=== PATIENT | male | born 1930 | race Two or more races ===

== ENCOUNTER 2016-07-30 21:01 | Inpatient (IN) | payer OTHER, MEDICAID ==
[~2016-07-30] VITALS: Ht 337.8 cm; Wt 65.8 kg
--- NOTE | 2016-07-30 21:01 | NUR ---
86 YO MALE BB RA FROM HOME. PT IS ALERT X 3, C/O RIGHT RIB PAIN S/P FALL. PER EMS, PT HAD A GLF AT HOME, PT STATES IT HURTS TO DEEPT BREATHI. SKN WARM AND DRY, RR EVEN AND UNLABORED. AWAITING ORDERS FROM PROVIDER
--- NOTE | 2016-07-30 21:15 | NUR ---
18G LEFT AC IV STARTED
[2016-07-30 21:35] LABS: BASOPHILS # (AUTO) 0.1 /CMM (0.0-0.2); BASOPHILS % (AUTO) 0.6 % (0.0-2.0); EOSINOPHILS # (AUTO) 0.6 /CMM (0.0-0.7); EOSINOPHILS % (AUTO) 4.3 % (0.0-6.0); HEMATOCRIT 34 % (39-51); HEMOGLOBIN 10.9 g/dL (13.5-17.5); LYMPHOCYTES # (AUTO) 1.8 /CMM (0.8-4.8); LYMPHOCYTES % (AUTO) 13.3 % (20.0-44.0); MEAN CORPUSCULAR HEMOGLOBIN 25 PG (26.0-33.0); MEAN CORPUSCULAR HGB CONC 32 g/dl (31.0-36.0); MEAN CORPUSCULAR VOLUME 78 fL (80-96); MONOCYTES # (AUTO) 0.9 /CMM (0.1-1.30); MONOCYTES % (AUTO) 6.6 % (2.0-12.0); NEUTROPHILS # (AUTO) 10.3 /CMM (1.8-8.9); NEUTROPHILS % (AUTO) 75.2 % (43.0-81.0); PLATELET COUNT (AUTO) 308 /CMM (150-450); RDW COEFFICIENT OF VARIATION 13.1 (11.5-15.0); RED BLOOD CELL COUNT(AUTO) 4.35 MIL/uL (4.5-6.0); WHITE BLOOD COUNT (AUTO) 13.7 K/uL (4.3-11.0)
[2016-07-30] MEDS ORDERED: ONDANSETRON HCL/PF 4 MG/2 ML VIAL ONE (21:43)
[2016-07-30] MEDS ORDERED: MORPHINE SULFATE INJ 2 MG/ML DISP.SYRIN ONE ×2 (21:43→23:38)
[2016-07-30 21:45] LABS: CALCIUM, SERUM 9.3 mg/dL (8.5-10.1); CREATININE 2.1 mg/dL (0.6-1.3)
[2016-07-30 21:49] LABS: PROTHROMBIN TIME 10.4 SECS (9.5-12.7)
[2016-07-30 21:50] LABS: ALBUMIN 3.1 g/dL (3.4-5.0); BILIRUBIN,DIRECT 0.1 mg/dL (0.0-0.2); BILIRUBIN,TOTAL 0.2 mg/dL (0.2-1.0); TOTAL PROTEIN, SERUM 8.4 g/dL (6.4-8.2)
--- NOTE | 2016-07-30 21:52 | NUR ---
RADIOLOGY TEAM AT BED SIDE FOR EVAL
--- NOTE | 2016-07-30 21:52 | NUR ---
MEDICATED PT ORDERED
[2016-07-30 21:53] LABS: TROPONIN I 0.02 ng/mL (0.00-0.056)
[2016-07-30] MEDS ORDERED: MORPHINE SULFATE INJ 2 MG/ML DISP.SYRIN IV ONE (22:00)
[2016-07-30] MEDS ORDERED: ONDANSETRON HCL/PF 4 MG/2 ML VIAL IV ONE (22:00)
[2016-07-30] MEDS ORDERED: PIPERACILLIN /TAZOBACTAM 3.375 G in IV D5W 50 ML IV ONE (22:00)
[2016-07-30] MEDS ORDERED: PIPERACILLIN /TAZOBACTAM 2.25 G in IV D5W 50 ML IV ONE (22:00)
[2016-07-30] MEDS ORDERED: VANCOMYCIN 1 GM in IV D5W 250 ML IV ONE (22:00)
[2016-07-30 22:10] LABS: LACTIC ACID 1.1 mmol/L (0.4-2.0)
[2016-07-30] MEDS ORDERED: VANCOMYCIN 1 GM VIAL ONE (22:13)
[2016-07-30] MEDS ORDERED: PIPERACILLIN /TAZOBACTAM 2.25 G VIAL IV ONE (22:14)
[2016-07-30 22:15] LABS: APPEARANCE,URINE CLEAR (CLEAR); BILIRUBIN,URINE NEGATIVE (NEGATIVE); BLOOD, URINE NEGATIVE Ery/uL (NEGATIVE); COLOR,URINE YELLOW (YELLOW); KETONES,URINE NEGATIVE (NEGATIVE); LEUKOCYTE ESTERASE ,URINE NEGATIVE (NEGATIVE); NITRITE, URINE NEGATIVE (NEGATIVE); PROTEIN,URINE 2+ mg/dl (NEGATIVE); UGLUCOSE NEGATIVE (NEGATIVE); UROBILINOGEN,URINE 0.2 EU/dL (0.2)
[2016-07-30] MEDS ORDERED: IV SET PRIMARY PUMP SET 1 EA INFUS.SET MC ONE (22:15)
[2016-07-30] MEDS ORDERED: IV D5W 50 ML IV ONE (22:15)
[2016-07-30] MEDS ORDERED: IV D5W 250 ML IV ONE (22:15)
[2016-07-30 22:26] LABS: ADD URINE CULTURE NO; BACTERIA,URINE None seen /HPF (None Seen); RBC,URINE 0-2 /HPF (0-2); SQUAMOUS EPITHELIAL CELL,UR None Seen /HPF (None Seen); WBC,URINE 0-2 /HPF (0-3)
--- NOTE | 2016-07-30 22:41 | NUR ---
REPORT GIVEN TO PLYWOOD LAYUP LINE BACK FEEDER FOR [facility]LA
--- NOTE | 2016-07-30 22:41 | NUR ---
PT TRANSPORTED TO [facility] VIA [facility]
--- NOTE | 2016-07-30 23:28 | NUR ---
PT RESTING IN ER BED, NAD NOTED, SKIN WARM AND DRY. PT IN ON ASSEMBLER FISHING FLOATS, WILLC ONTINUE TO MONITOR
[2016-07-31] VITALS (10 sets, daily range): BP systolic 104–150; BP diastolic 57–77
[2016-07-31] MEDS ORDERED: MORPHINE SULFATE INJ 2 MG/ML DISP.SYRIN IV PRN
--- NOTE | 2016-07-31 | NUR ---
PER MD SOLITARIO, NO IV FLUID BOLUS NEEDED
--- NOTE | 2016-07-31 00:02 | NUR ---
RT AT BED SIDE FOR BREATHING TREATMENT
[2016-07-31] MEDS ORDERED: IV NS 0.9% 1,000 ML IV PRN (00:07)
[2016-07-31] MEDS ORDERED: ALBUTEROL FS 2.5 MG/3 ML VIAL.NEB ONE (00:07)
[2016-07-31] MEDS ORDERED: methylPREDNISolone SOD SUCC 125 MG/2ML VIAL ONE (00:16)
--- NOTE | 2016-07-31 00:22 | NUR ---
RT AT BED SIDE FOR SUCTIONING
[2016-07-31] MEDS ORDERED: FUROSEMIDE 20 MG/2 ML VIAL IV ONE (00:30)
[2016-07-31] MEDS ORDERED: ALBUTEROL FS 2.5 MG/0.5 ML VIAL.NEB NEB SCH (00:30)
[2016-07-31] MEDS ORDERED: FUROSEMIDE 20 MG/2 ML VIAL IV SCH ×2 (00:30→09:00)
[2016-07-31] MEDS ORDERED: Z GUARD REMEDY 2 OZ OINT TP PRN (00:30)
[2016-07-31] MEDS ORDERED: MAG HYDROX/AL HYDROX/SIMETH 30 ML UDC PO PRN (00:30)
[2016-07-31] MEDS ORDERED: methylPREDNISolone SOD SUCC 125 MG/2ML VIAL IV ONE (00:30)
[2016-07-31] MEDS ORDERED: MAGNESIUM HYDROXIDE 30 ML UDC PO PRN (00:30)
[2016-07-31] MEDS ORDERED: ACETAMINOPHEN 325 MG TABLET PO PRN (00:30)
[2016-07-31] MEDS ORDERED: ONDANSETRON HCL/PF 4 MG/2 ML VIAL IVP PRN (00:30)
[2016-07-31] MEDS ORDERED: ALBUTEROL FS 2.5 MG/3 ML VIAL.NEB NEB PRN (00:30)
--- NOTE | 2016-07-31 00:40 | NUR ---
PT TRANSPORTED TO TELE BED WITHOUT INCIDENT
--- NOTE | 2016-07-31 01:19 | NUR ---
received pt not in acute distress but pt is on non rebreather mask saturating @ 81% after few minutes when settled in bed pt saturating % 94%.nasal cannula trial placed on 6 liters and pt desats @ 86%, no acute distress, resting in high fowlers position.placed back in non rebreather mask and saturating @ 94%.unable to move and turn to removed extra sheets as pt yell from pain in his right ribs. Paged Dr. Burrell regarding pt has POLST for DNR. awaiting for call back. unable to complete admission, pt doesn't speak martiniquais but able to say "Pain" pointing to right ribs.sinus rhythm on monitor with 1st degree block.
[2016-07-31] MEDS ORDERED: FUROSEMIDE 20 MG/2 ML VIAL ONE (01:41)
[2016-07-31 02:27] LABS: ABG BASE EXCESS -0.9 mmol/L; ABG OXYGEN SATURATION 93.6 % (92.0-98.5); ABG PCO2 43.9 mmHg (35.0-45.0); ABG PH 7.365 (7.350-7.450); ABG PO2 72.2 mmHg (75.0-100.0); ABG TOTAL HEMOGLOBIN 10.5 G/dL (13.5-18.0); AaDO2 234.9 mmHg; COHb 0.7 % (0.5-1.5); MetHb 0.8 % (0.0-1.5); O2Hb 92.2 % (94.0-97.0); SITE, ABG Right Radial
--- NOTE | 2016-07-31 02:32 | NUR ---
ABG DONE AND RESULT IS NORMAL.
[2016-07-31] MEDS ORDERED: HYDROCODONE/APAP 5/325MG 1 EACH TABLET ONE ×2 (02:47→06:48)
[2016-07-31] MEDS: HYDROCODONE/APAP 5/325MG 1 EACH TABLET PO PRN ×3 (02:50→15:41)
--- NOTE | 2016-07-31 06:41 | NUR ---
pt doing well with mask 100%, downgraded to nasal cannula 2 liters saturating @ 96%, still having rhonchi and wheezing, pain only when moving, unable to give morphine since pt will have respiratory depression with morphine as what happened last night from ER. norco for pain only. pt more awake ,alert ,oriented x3 very hard of hearing and resting at this time.all needs attended,call light at reached.
--- NOTE | 2016-07-31 07:00 | NUR ---
fingerstick obtain per pt request. pt is diabetic and per pt he takes insulin prior to eating, BG 331mg/dl. will notify .
--- NOTE | 2016-07-31 07:30 | NUR ---
CLINICAL APPEALS SPECIALIST OPENING NOTE PATIENT IS ALERT AND ORIENTED x2. NO PAIN AT THIS TIME. NO SOB OR DISTRESS NOTED. SAFETY MEASURES IMPLEMENTED. ALL NURSING CARE NEEDS WILL BE ATTENDED TO. IV INTACT AND PATENT NO REDNESS OR SWELLING NOTED. ON 2L/MIN OF OXYGEN. WILL CONTINUE TO MONITOR.
[2016-07-31 07:46] LABS: CALCIUM, SERUM 8.7 mg/dL (8.5-10.1); CREATININE 2.4 mg/dL (0.6-1.3); POTASSIUM 5.8 mmol/L (3.5-5.1)
[2016-07-31 07:50] LABS: BASOPHILS % (AUTO) 0.1 % (0.0-2.0); EOSINOPHILS % (AUTO) 0.1 % (0.0-6.0); HEMATOCRIT 33 % (39-51); HEMOGLOBIN 10.3 g/dL (13.5-17.5); LYMPHOCYTES # (AUTO) 0.4 /CMM (0.8-4.8); LYMPHOCYTES % (AUTO) 4.3 % (20.0-44.0); MEAN CORPUSCULAR HEMOGLOBIN 25 PG (26.0-33.0); MEAN CORPUSCULAR HGB CONC 32 g/dl (31.0-36.0); MEAN CORPUSCULAR VOLUME 79 fL (80-96); MONOCYTES % (AUTO) 0.3 % (2.0-12.0); NEUTROPHILS # (AUTO) 9.5 /CMM (1.8-8.9); NEUTROPHILS % (AUTO) 95.2 % (43.0-81.0); PLATELET COUNT (AUTO) 284 /CMM (150-450); RDW COEFFICIENT OF VARIATION 13.7 (11.5-15.0); RED BLOOD CELL COUNT(AUTO) 4.12 MIL/uL (4.5-6.0); WHITE BLOOD COUNT (AUTO) 9.9 K/uL (4.3-11.0)
[2016-07-31 08:01] LABS: IRON, SERUM 31 ug/dl (50-175); TOTAL IRON BINDING CAPACITY 171 ug/dl (250-450)
[2016-07-31] MEDS ORDERED: LACT10SO PO (08:38)
[2016-07-31] MEDS ORDERED: DOCU-170 PO (08:38)
[2016-07-31] MEDS ORDERED: BISA10SU8 RC (08:38)
[2016-07-31] MEDS ORDERED: FAMO-131 PO (08:38)
[2016-07-31] MEDS ORDERED: AMLO5TAB4 PO (08:38)
[2016-07-31] MEDS ORDERED: IPRA3AMP HHN ×2 (08:38)
[2016-07-31] MEDS ORDERED: SENN8.6T6 PO (08:38)
[2016-07-31] MEDS ORDERED: ACET-868 PO (08:38)
[2016-07-31] MEDS ORDERED: METO25TA6 PO (08:38)
[2016-07-31] MEDS ORDERED: LEVO50TA8 PO (08:38)
[2016-07-31] MEDS ORDERED: INSU100I14 SQ (08:38)
[2016-07-31] MEDS ORDERED: INSU3INS6 SQ (08:38)
[2016-07-31] MEDS: PANTOPRAZOLE 40 MG TABLET.DR PO SCH (08:39)
[2016-07-31] MEDS ORDERED: SODIUM POLYSTYRENE SULFONATE 15 G/60 ML BOTTLE PO ONE (09:00)
[2016-07-31] MEDS: FUROSEMIDE 40 MG/4 ML VIAL IV SCH ×3 (10:33→18:54)
[2016-07-31] MEDS ORDERED: LEVOFLOXACIN 500 MG /D5W 100ML 500 MG in PREMIX 1 EA IV ONE ×2 (11:00→12:00)
[2016-07-31] MEDS: MORPHINE SULFATE INJ 2 MG/ML DISP.SYRIN IV PRN (11:42)
[2016-07-31] MEDS ORDERED: BLOOD SUGAR DIAGNOSTIC 1 EACH STRIP IN SCH (12:00)
--- NOTE | 2016-07-31 12:00 | NUR ---
STRUCTURAL FITTER NOTE PATIENT HAD THORACENTESIS DONE ON RIGHT LUNG. PATIENT TOLERATED WELL. PATIENT STATES PAIN 10/10. PAIN MEDICATION GIVEN. WILL CONTINUE TO MONITOR PATIENT
[2016-07-31] MEDS ORDERED: IV SET PRIMARY PUMP SET 1 EA INFUS.SET MC ONE ×2 (12:07→14:51)
[2016-07-31] MEDS ORDERED: IV NS 0.9% 250 ML IV ONE (12:07)
[2016-07-31] MEDS ORDERED: SECONDARY IV SET 1 EA INFUS.SET MC ONE ×2 (12:07→16:34)
[2016-07-31] MEDS: LEVOFLOXACIN 250 MG /D5W 50 ML 250 MG in PREMIX 1 EA IV SCH (12:25)
[2016-07-31] MEDS: BLOOD SUGAR DIAGNOSTIC 1 EACH STRIP VI SCH ×3 (13:00→23:36)
[2016-07-31] MEDS ORDERED: DEXTROSE 50%-WATER 50 ML DISP.SYRIN IV PRN (13:00)
[2016-07-31 14:39] LABS: GLUCOSE,BODY FLUID 307 mg/dL; PROTEIN, BODY FLUID 4.8 G/DL
[2016-07-31] MEDS: SOD FERRIC GLUC 125 MG in IV NS 0.9% 100 ML IV SCH (15:00)
[2016-07-31] MEDS ORDERED: LEVOFLOXACIN 250 MG /D5W 50 ML 250 MG in PREMIX 1 EA IV ONE (15:30)
--- NOTE | 2016-07-31 15:34 | NUR ---
Pt refused abg. WILBERT Draper and Charge Nurse notified. Addendum: 07/31/16 at 1535 by ALIDA MOREIRA RT Amended: Links added.
--- NOTE | 2016-07-31 15:42 | NUR ---
MS RN NOTE PATIENT REFUSED ABG'S. CHARGE NURSE NOTIFIED. EXPLAINED TO PATIENT SIGNIFICANCE OF BLOOD DRAW. PATIENT STILL REFUSED.
[2016-07-31 15:58] LABS: APPEARANCE,SPUN,BODY FLUID CLEAR (CLEAR); TOTAL VOLUME,BODY FLUID 1100 mL; WBC, BODY FLUID 600 /cu. mm. (0-200)
[2016-07-31] MEDS ORDERED: DEXTROSE 50%-WATER 50 ML DISP.SYRIN IVP ONE (16:00)
[2016-07-31 16:12] LABS: MACROPHAGES, BODY FLUID 25; POLYNUCLEAR, BODY FLUID 0 % (0-25)
[2016-07-31] MEDS ORDERED: Calcium Gluconate 1GM/10ML 4.65 MEQ in IV D5W 50 ML IV ONE (16:15)
[2016-07-31] MEDS: INSULIN REGULAR, HUMAN 100 UNIT/ML 3 ML VIAL SQ PRN ×2 (16:39→18:56)
--- NOTE | 2016-07-31 18:00 | NUR ---
WEIGHT CONTROL LECTURER RECEIVED PT BY BED FROM W. REPORT RECEIVED FROM M/S RN. PT TRANSFERRED TO ICU FOR SOB AND LOW O2 SAT. PT SITTING UP IN BED ON NONREBREATHER MASK. RESP EVEN AND UNLABORED. SPO2 100%
--- NOTE | 2016-07-31 18:14 | NUR ---
SUPERINTENDENT COLLIERY NOTE PATIENT TRANSFERRED TO ICU. GAVE REPORT TO WILBERT GONZÁLES. PATIENT IS ALERT AND ORIENTED x4. PATIENT STATES PAIN IN RIBS. NO DISTRESS NOTED. IV INTACT AND PATENT NO REDNESS OR SWELLING NOTED. CALL LIGHT WITHIN REACH. SAFETY MEASURES IMPLEMENTED. PER MD TO TRANSFER TO ICU FOR BIPAP MONITORING. TO FOLLOW UP FOR CONSULT, DR. SONI. MADE RN AWARE
--- NOTE | 2016-07-31 19:26 | NUR ---
WOOD MACHINIST APPRENTICE: THERE IS BUNCHES OF PREVIOUS OVERRIDES MEDICATION THAT IS NOT TAKEN OUT IN THIS SHIFT, BUT ACKNOWLEDGED ALL OF THEM. PT RECEIVED FROM PREVIOUS NURSE, TRANSFERRED FROM [facility].
--- NOTE | 2016-07-31 20:00 | NUR ---
DRAWBENCH OPERATOR: RECEIVED PT FROM PREVIOUS SHIFT, PT IS A/O 3, FARSI SPEAKING ONLY, ON NRB 15 L SATURATING 100%, NO DISTRESS. IV ACCESS LEFT AC # 18 INTACT. SINUS RHYTHM WITH 1 DEGREE AV BLOCK. HAS MEDICAL HISTORY OF CHRONIC BACK PAIN. FULL ASSESSMENT SEE ON FLOW SHEET. ABG DONE, NOT CRITICAL CHANGES NOTED, WILL KEEP ON NRB. KEEP MONITORING...
[2016-07-31 20:40] LABS: ABG BASE EXCESS 1.3 mmol/L; ABG OXYGEN SATURATION 96.7 % (92.0-98.5); ABG PH 7.419 (7.350-7.450); ABG PO2 90.9 mmHg (75.0-100.0); ABG TOTAL HEMOGLOBIN 10.6 G/dL (13.5-18.0); AaDO2 436.5 mmHg; COHb 0.7 % (0.5-1.5); MetHb 0.9 % (0.0-1.5); O2Hb 95.2 % (94.0-97.0); SITE, ABG Right Radial; VENT MODE, BG NRB
[2016-07-31] MEDS ORDERED: ZOLPIDEM TARTRATE 5 MG TABLET PO PRN (22:00)
[2016-08-01] VITALS (30 sets, daily range): BP systolic 106–143; BP diastolic 46–112
[2016-08-01 04:53] LABS: BASOPHILS # (AUTO) 0.1 /CMM (0.0-0.2); BASOPHILS % (AUTO) 0.3 % (0.0-2.0); HEMATOCRIT 33 % (39-51); HEMOGLOBIN 10.7 g/dL (13.5-17.5); LYMPHOCYTES # (AUTO) 1.7 /CMM (0.8-4.8); LYMPHOCYTES % (AUTO) 7.7 % (20.0-44.0); MEAN CORPUSCULAR HEMOGLOBIN 25 PG (26.0-33.0); MEAN CORPUSCULAR HGB CONC 32 g/dl (31.0-36.0); MEAN CORPUSCULAR VOLUME 79 fL (80-96); MONOCYTES # (AUTO) 1.1 /CMM (0.1-1.30); NEUTROPHILS # (AUTO) 19.7 /CMM (1.8-8.9); PLATELET COUNT (AUTO) 234 /CMM (150-450); RDW COEFFICIENT OF VARIATION 14.1 (11.5-15.0); RED BLOOD CELL COUNT(AUTO) 4.25 MIL/uL (4.5-6.0); WHITE BLOOD COUNT (AUTO) 22.6 K/uL (4.3-11.0)
[2016-08-01 05:17] LABS: CHOLESTEROL 175 mg/dL (<200); HDL CHOLESTEROL 51 mg/dL (40-60); LDL 112 mg/dL (0-99); TRIGLYCERIDES 62 mg/dL (30-150)
[2016-08-01 05:18] LABS: ALANINE AMINOTRANSFERASE 22 U/L (12-78); ALBUMIN 2.9 g/dL (3.4-5.0); ALKALINE PHOSPHATASE 69 U/L (46-116); ASPARTATE AMINOTRANSFERASE 16 U/L (15-37); BILIRUBIN,TOTAL 0.3 mg/dL (0.2-1.0); CALCIUM, SERUM 9.8 mg/dL (8.5-10.1); CARBON DIOXIDE 28 mmol/L (21-32); CHLORIDE 103 mmol/L (98-107); GLUCOSE 86 mg/dL (74-106); MAGNESIUM 2.4 mg/dL (1.8-2.4); PHOSPHORUS 4.9 mg/dL (2.5-4.9); POTASSIUM 5.6 mmol/L (3.5-5.1); SODIUM SERUM 141 mmol/L (136-145); TOTAL PROTEIN, SERUM 8.1 g/dL (6.4-8.2); UREA NITROGEN, BLOOD 63 mg/dL (7-18)
[2016-08-01 05:19] LABS: TROPONIN I < 0.017 ng/mL (0.00-0.056)
[2016-08-01 05:59] LABS: BAND % (MANUAL) 3 % (0.0-5.0); LYMPHOCYTES % (MANUAL) 8 % (16-48); MONOCYTES % (MANUAL) 6 % (0-11.0); NEUTROPHILS % (MANUAL) 83 (42-76)
[2016-08-01 06:00] LABS: HYPOCHROMASIA 2+; PLATELET ESTIMATE ADEQUATE
[2016-08-01] MEDS: LIDOCAINE 5% (PATCH) 1 EA PATCH TP SCH ×2 (06:00→06:08)
--- NOTE | 2016-08-01 07:13 | NUR ---
SENSOR OPERATOR: SEEN AND EXAMINED BY DR JOHNSON, CURRENT CONDITION DISCUSSED, LABS REVIEWED BY DR JOHNSON, POTASSIUM IS ELEVATED.
[2016-08-01] MEDS ORDERED: SODIUM POLYSTYRENE SULFONATE 15 G/60 ML BOTTLE PO ONE (07:30)
[2016-08-01] MEDS: BLOOD SUGAR DIAGNOSTIC 1 EACH STRIP VI SCH ×4 (08:04→23:26)
[2016-08-01] MEDS: PANTOPRAZOLE 40 MG TABLET.DR PO SCH (08:10)
[2016-08-01] MEDS: MORPHINE SULFATE INJ 2 MG/ML DISP.SYRIN IV PRN (09:36)
--- NOTE | 2016-08-01 09:40 | NUR ---
AT 0920 PT ON NC 4L., PT DEVELOPED ACUTE PAIN IN RLL, SOB, PLACED BACK ON NON REBREATHER, MEDICATED FOR PAIN, CXR OBTAINED.
--- NOTE | 2016-08-01 10:03 | NUR ---
PT SEEN AND CXR REVIEWED BY DR SONI. PT'S SON UPDATED ON PROGRESS.
[2016-08-01 10:53] LABS: ABG BASE EXCESS 2.4 mmol/L; ABG OXYGEN SATURATION 88.8 % (92.0-98.5); ABG PCO2 43.2 mmHg (35.0-45.0); ABG PH 7.418 (7.350-7.450); ABG PO2 55.4 mmHg (75.0-100.0); AaDO2 614.4 mmHg; COHb 0.4 % (0.5-1.5); MetHb 0.7 % (0.0-1.5); O2Hb 87.8 % (94.0-97.0); SITE, ABG Left Radial; VENT MODE, BG NON-REBREATHER
[2016-08-01 11:25] LABS: *SPE A/G RATIO 0.7 (0.7-1.7); *SPE ALBUMIN 2.9 g/dL (2.9-4.4); *SPE ALPHA-1-GLOBULIN 0.3 g/dL (0.0-0.4); *SPE ALPHA-2-GLOBULIN 0.7 g/dL (0.4-1.0); *SPE BETA GLOBULIN 1.2 g/dL (0.7-1.3); *SPE GLOBULIN, TOTAL 4.3 g/dL (2.2-3.9); *SPE M-SPIKE Not Observed g/dL (Not Observed); *SPE PROTEIN TOTAL 7.2 g/dL (6.0-8.5); *SPEGAMMA GLOBULIN 2.1 g/dL (0.4-1.8)
[2016-08-01] MEDS: HYDROCODONE/APAP 5/325MG 1 EACH TABLET PO PRN ×3 (11:55→18:18)
--- NOTE | 2016-08-01 12:13 | NUR ---
Son at bedside. Pt son approached for consent for VQ scan. He concerned that pt may not tolerate VQ scan due to low sat on non rebreather and pain. Dr. Martinez notified. Pt will not be able to tolerate VQ scan per Dr. Martinez, due to low sat on non-rebreather at 90degress, only 84-88%. Dr Martinez also stated that Morphine cat not be increased ant this time. Family updated on orders.
[2016-08-01] MEDS ORDERED: SECONDARY IV SET 1 EA INFUS.SET MC ONE (15:06)
[2016-08-01] MEDS ORDERED: IV SET PRIMARY PUMP SET 1 EA INFUS.SET MC ONE (15:06)
[2016-08-01] MEDS: IV D5/ 0.9% NACL 1,000 ML IV PRN (15:40)
[2016-08-01] MEDS: SOD FERRIC GLUC 125 MG in IV NS 0.9% 100 ML IV SCH (15:42)
--- NOTE | 2016-08-01 16:44 | NUR ---
PT PLACED ON BIPAP PER DR. SONI ORDERS DUE TO PT DESATURATING. SETTINGS PER DR. SONI. BIPAP PLUGGED INTO RED OUTLET. ALARMS SET AND AUDIBLE PER POLICY. WILL CONTINUE TO MONITOR PT. Addendum: 08/01/16 at 1645 by JESSE WILLOUGHBY RT Amended: Links added.
--- NOTE | 2016-08-01 16:45 | NUR ---
PT ASSISTED WITH BED BATH, LOW URINE OUTPUT, F/C INSERTED ORDERED BY DR SALGADO. PT NOTED TO DESAT TO LOW 80TH. PT PLACED ON BIPAP BY RT. RAT 08/02. NOW SAT 99-100%
[2016-08-01] MEDS: LEVOFLOXACIN 250 MG /D5W 50 ML 250 MG in PREMIX 1 EA IV SCH ×2 (18:18→18:27)
--- NOTE | 2016-08-01 18:55 | NUR ---
1817 PT MEDICATED FOR R SIDE PAIN WITH NORCO. PT AVBLE TO SWALLOW APPLE SOUSE WITH MEDICATION WELL, NOT ABLE TO SWALLOW WATER.
[2016-08-01] MEDS: *INSULIN REGULAR(HUMULIN R)HUM 100 UNIT/ML VIAL SQ PRN ×2 (19:00→23:30)
[2016-08-01] MEDS: HEPARIN SODIUM, PORCINE 5000 UNITS/1 ML VIAL SQ SCH (20:12)
--- NOTE | 2016-08-01 20:49 | NUR ---
SENIOR TELECOMMUNICATIONS ENGINEER: RECEIVED PT ON BIPAP,SATURATING 100%,NO DISTRESS, V/S STABLE. ONGOING MONITORING...
[2016-08-02] VITALS (28 sets, daily range): BP systolic 128–162; BP diastolic 55–79
[2016-08-02 05:21] LABS: BASOPHILS % (AUTO) 0.2 % (0.0-2.0); EOSINOPHILS % (AUTO) 0.1 % (0.0-6.0); HEMATOCRIT 30 % (39-51); HEMOGLOBIN 9.8 g/dL (13.5-17.5); LYMPHOCYTES # (AUTO) 1.9 /CMM (0.8-4.8); LYMPHOCYTES % (AUTO) 11.8 % (20.0-44.0); MEAN CORPUSCULAR HEMOGLOBIN 26 PG (26.0-33.0); MEAN CORPUSCULAR HGB CONC 32 g/dl (31.0-36.0); MEAN CORPUSCULAR VOLUME 79 fL (80-96); MONOCYTES # (AUTO) 1.2 /CMM (0.1-1.30); MONOCYTES % (AUTO) 7.1 % (2.0-12.0); NEUTROPHILS # (AUTO) 13.3 /CMM (1.8-8.9); NEUTROPHILS % (AUTO) 80.8 % (43.0-81.0); PLATELET COUNT (AUTO) 297 /CMM (150-450); RDW COEFFICIENT OF VARIATION 14.3 (11.5-15.0); RED BLOOD CELL COUNT(AUTO) 3.81 MIL/uL (4.5-6.0); WHITE BLOOD COUNT (AUTO) 16.5 K/uL (4.3-11.0)
[2016-08-02] MEDS: LIDOCAINE 5% (PATCH) 1 EA PATCH TP SCH (05:42)
[2016-08-02 05:54] LABS: ALBUMIN 2.6 g/dL (3.4-5.0); BILIRUBIN,TOTAL 0.3 mg/dL (0.2-1.0); CALCIUM, SERUM 8.3 mg/dL (8.5-10.1); MAGNESIUM 2.2 mg/dL (1.8-2.4); PHOSPHORUS 4.1 mg/dL (2.5-4.9); POTASSIUM 3.3 mmol/L (3.5-5.1); TOTAL PROTEIN, SERUM 7.3 g/dL (6.4-8.2)
--- NOTE | 2016-08-02 07:10 | NUR ---
NT SUCTIONED TO OBTAIN LARGE AMOUNT OF THICK YELLOW SECRETIONS. TOLERATED WELL.
[2016-08-02] MEDS: PANTOPRAZOLE 40 MG TABLET.DR PO SCH (07:30)
[2016-08-02] MEDS ORDERED: POTASSIUM CHLORIDE 20 MEQ TAB.PRT.SR PO SCH (08:00)
[2016-08-02] MEDS: BLOOD SUGAR DIAGNOSTIC 1 EACH STRIP VI SCH ×4 (08:22→21:11)
[2016-08-02] MEDS: INSULIN REGULAR, HUMAN 100 UNIT/ML 3 ML VIAL SQ PRN ×3 (08:23→16:34)
[2016-08-02] MEDS ORDERED: POTASSIUM CL. PREMIX PERIPHER. 50 ML IV SCH (08:30)
[2016-08-02] MEDS: IV D5/ 0.9% NACL 1,000 ML IV PRN ×2 (08:32→23:31)
[2016-08-02] MEDS: HEPARIN SODIUM, PORCINE 5000 UNITS/1 ML VIAL SQ SCH ×2 (08:33→21:10)
--- NOTE | 2016-08-02 08:36 | NUR ---
PLACED OFF BIPAP AND PLACED ON NRB @15 LPM. NURSE AWARE.
[2016-08-02] MEDS: MORPHINE SULFATE INJ 2 MG/ML DISP.SYRIN IV PRN ×2 (08:46→11:27)
[2016-08-02] MEDS ORDERED: IV SET PRIMARY PUMP SET 1 EA INFUS.SET MC ONE ×2 (08:57→13:44)
[2016-08-02 09:55] LABS: ABG BASE EXCESS 5.2 mmol/L; ABG OXYGEN SATURATION 91.6 % (92.0-98.5); ABG PCO2 46.6 mmHg (35.0-45.0); ABG PO2 63.7 mmHg (75.0-100.0); ABG TOTAL HEMOGLOBIN 10.4 G/dL (13.5-18.0); AaDO2 457.8 mmHg; COHb 0.7 % (0.5-1.5); MetHb 0.7 % (0.0-1.5); O2Hb 90.3 % (94.0-97.0); SITE, ABG Right Radial; VENT MODE, BG NBR MASK
--- NOTE | 2016-08-02 10:14 | NUR ---
REPORTED ABG TO . ORDERS TO KEEP ON NON-REBREATHER @15 LPM AND BIPAP NEEDED. BIPAP IS STANDBY.
--- NOTE | 2016-08-02 10:40 | NUR ---
IRON ERECTOR NOTE 0720: received patient awake,A/O x2, on Bipap with O2 sat of 95%, tolerated settings well. Still with c/o 6/10 right ribs pain, offered pain med but patient said no need at this time, still tolerable. With PIVs intact, IVF infusing as ordered. SR 90's on the monitor. With castellon cath intact,noted with nathan colored urine drained to BSD. 0830: Placed on NRB by RT, will monitor for breathing and titrate as able. S/E by , with order for 3 bags of KCl. 0915: S/E by Dr. Galloway, aware for K level 3.3, said to DC KCl, removed 1st bag that is infusing. 0930: ABG done, aware,will continue off Bipap at this time, will monitor for breathing. 1035: S/E by , no new order at this time.
[2016-08-02] MEDS: SOD FERRIC GLUC 125 MG in IV NS 0.9% 100 ML IV SCH (13:52)
--- NOTE | 2016-08-02 14:00 | NUR ---
NT SUCTIONED TO OBTAIN LARGE AMOUNT OF THICK YELLOW SECRETIONS.
[2016-08-02] MEDS: LEVOFLOXACIN 250 MG /D5W 50 ML 250 MG in PREMIX 1 EA IV SCH (16:33)
--- NOTE | 2016-08-02 17:00 | NUR ---
CONTOUR PATH TAPE MILL OPERATOR NOTE 1300: Placed patient on 6LPM via NC, sat goes to 91%, placed back on NRB. 1400: Placed patient on 10LPM O2 via masjk,Sat 95%, will continue to monitor.
--- NOTE | 2016-08-02 18:25 | NUR ---
RN PRACTITIONER NOTE Able to eat dinner 50%, no S/S aspiration noted.Placed on 6LPM O2via NC, tolerated, at 96% O2 sat at this time, will continue to monitor, kept patient HOB elevated. No c/o pain at this time,removed right chest Lidocaine patch as ordered.
--- NOTE | 2016-08-02 19:45 | NUR ---
ICU/STATISTICS INTERN RECEIVED REPORT FROM DAY NURSE, PT IS ALERT TO NAME AND TOUCH. PT IS ON N/C AT 6 LITERS WITH SATURATION AT 95%. PT NEEDS ASSISTANCE WITH FEEDING. PT HAS F/C THAT IS DRAINING YELLOW URINE. PT WAS TURNED AND REPOSITIONED FOR COMFORT AND CARE.
[2016-08-02] MEDS: *INSULIN REGULAR(HUMULIN R)HUM 100 UNIT/ML VIAL SQ PRN (21:18)
--- NOTE | 2016-08-02 22:35 | NUR ---
ICU/GAMBLING CASHIER PT'S BLOOD SUGAR WAS 238, THERE IS COVERAGE FOR THIS PER MD ORDERED WILL MONITOR THIS PER PROTOCOL. PT WAS TURNED AND REPOSITIONED FOR COMFORT AND CARE.
[2016-08-03] VITALS (19 sets, daily range): BP systolic 117–162; BP diastolic 53–73
--- NOTE | 2016-08-03 03:21 | NUR ---
ICU/DOCTOR OF NURSING PRACTICE PT WAS GIVEN BATH WITH ORAL CARE AT THIS TIME. PT TOLERATED THIS WELL ON CURRENT O2 SETTINGS. PT WAS TURNED AND REPOSITIONED FOR COMFORT AND CARE. PT APPEARS TO BE COMFORTABLE NO ACUTE RESPIRATORY DISTRESS SEEN. WILL CONTINUE TO MONITOR THIS PT.
[2016-08-03 05:27] LABS: BASOPHILS % (AUTO) 0.1 % (0.0-2.0); HEMATOCRIT 32 % (39-51); HEMOGLOBIN 9.9 g/dL (13.5-17.5); LYMPHOCYTES # (AUTO) 2.1 /CMM (0.8-4.8); LYMPHOCYTES % (AUTO) 8.2 % (20.0-44.0); MEAN CORPUSCULAR HEMOGLOBIN 25 PG (26.0-33.0); MEAN CORPUSCULAR HGB CONC 32 g/dl (31.0-36.0); MEAN CORPUSCULAR VOLUME 80 fL (80-96); MONOCYTES # (AUTO) 1.2 /CMM (0.1-1.30); MONOCYTES % (AUTO) 4.6 % (2.0-12.0); NEUTROPHILS # (AUTO) 22.8 /CMM (1.8-8.9); NEUTROPHILS % (AUTO) 87.1 % (43.0-81.0); PLATELET COUNT (AUTO) 264 /CMM (150-450); RDW COEFFICIENT OF VARIATION 13.9 (11.5-15.0); RED BLOOD CELL COUNT(AUTO) 3.94 MIL/uL (4.5-6.0); WHITE BLOOD COUNT (AUTO) 26.2 K/uL (4.3-11.0)
[2016-08-03 05:47] LABS: ALBUMIN 2.2 g/dL (3.4-5.0); BILIRUBIN,TOTAL 0.3 mg/dL (0.2-1.0); CALCIUM, SERUM 7.9 mg/dL (8.5-10.1); CREATININE 2.3 mg/dL (0.6-1.3); MAGNESIUM 1.9 mg/dL (1.8-2.4); PHOSPHORUS 2.9 mg/dL (2.5-4.9); TOTAL PROTEIN, SERUM 6.9 g/dL (6.4-8.2)
[2016-08-03 06:00] LABS: POTASSIUM 2.5 mmol/L (3.5-5.1)
--- NOTE | 2016-08-03 06:05 | NUR ---
ICU/TRUCK DOCK MATERIAL MOVER PT'S POTASSIUM IS 2.5 THIS MORNING LABS, MD MCNEAL IN UNIT SEEING PT'S, GAVE ORDER FOR 20MEQ POTASSIUM PO X Q 1 HR FOR A TOTAL OF 5 DOSES. ORDERS PUT IN AND CARRIED OUT.
[2016-08-03] MEDS ORDERED: POTASSIUM CHLORIDE 20 MEQ POWDER PACKET ONE ×2 (06:21→06:37)
[2016-08-03] MEDS: LIDOCAINE 5% (PATCH) 1 EA PATCH TP SCH (06:27)
[2016-08-03] MEDS: POTASSIUM CHLORIDE 20 MEQ POWDER PACKET PO SCH ×4 (06:28→11:00)
[2016-08-03] MEDS: BLOOD SUGAR DIAGNOSTIC 1 EACH STRIP VI SCH ×3 (06:42→17:06)
[2016-08-03] MEDS: INSULIN REGULAR, HUMAN 100 UNIT/ML 3 ML VIAL SQ PRN ×3 (06:43→17:07)
[2016-08-03] MEDS: PANTOPRAZOLE 40 MG TABLET.DR PO SCH (06:44)
--- NOTE | 2016-08-03 07:20 | NUR ---
ICU/TAG PRESS OPERATOR AM MEDS GIVEN FOR [id number], ALSO PAIN PATCH, LIDODERM PLACED ON PT TO RIGHT MID TO LOWER BACK. PT TOLERATED WELL.
--- NOTE | 2016-08-03 07:20 | NUR ---
JOURNEYMAN PIPEFITTER NOTE Received patient awake, A/Ox2. No respiratory distress noted,on 3LPM of O2 via NC tolerated. With right chest Lido patch for pain. Verbalized does not need Morphine at this time. With PIVs intact.Nelson cath intact, noted with clear UOP. Will monitor for changes.
[2016-08-03 07:32] LABS: NEUTROPHILS % (MANUAL) 88 (42-76)
[2016-08-03 07:33] LABS: BAND % (MANUAL) 2 % (0.0-5.0); LYMPHOCYTES % (MANUAL) 7 % (16-48); MONOCYTES % (MANUAL) 3 % (0-11.0); PLATELET ESTIMATE ADEQUATE
[2016-08-03] MEDS: MORPHINE SULFATE INJ 2 MG/ML DISP.SYRIN IV PRN ×2 (09:04→16:26)
[2016-08-03] MEDS: HEPARIN SODIUM, PORCINE 5000 UNITS/1 ML VIAL SQ SCH (09:04)
[2016-08-03] MEDS: IV D5/ 0.9% NACL 1,000 ML IV PRN (14:50)
[2016-08-03] MEDS: SOD FERRIC GLUC 125 MG in IV NS 0.9% 100 ML IV SCH (14:50)
--- NOTE | 2016-08-03 16:12 | NUR ---
GUI DEVELOPER NOTE building construction supervisor called and given info for the transfer, said PU time about [phone]. Report given to Kathy Kilpatrick RN [phone]. All questions were answered. No any significant changes noted at this time.
[2016-08-03] MEDS: LEVOFLOXACIN 250 MG /D5W 50 ML 250 MG in PREMIX 1 EA IV SCH (17:06)
--- NOTE | 2016-08-03 18:56 | NUR ---
CHIP PERSON NOTE [facility] with 2 personnels came to PU patient, patient in good condition, VSS on 3LPM of O2 via NC. Report given to EMT, all questions were answered, Michael aware re: the transfer. PIVs intact, Nelson cath intact.
== END 2016-08-03 19:00 | disposition short-term general hospital (02) | DRG 177 ==
LOC: ER 21:03 → TELE 22:14 → ICU 07-31 18:00
PROVIDERS: ADMIT Internal Medicine; ATTEND Internal Medicine
PROC: 0W993ZZ Drainage of Right Pleural Cavity, Percutaneous Approach (ICD-10-PCS; principal; 2016-07-31)
PROC: 5A09357 Assistance with Respiratory Ventilation, Less than 24 Consecutive Hours, Continuous Positive Airway Pressure (ICD-10-PCS; 2016-08-01)
DX: J69.0 Pneumonitis due to inhalation of food and vomit (principal); I50.33 Acute on chronic diastolic (congestive) heart failure; J96.01 Acute respiratory failure with hypoxia; N17.0 Acute kidney failure with tubular necrosis; I13.0 Hypertensive heart and chronic kidney disease with heart failure and stage 1 through stage 4 chronic kidney disease, or unspecified chronic kidney disease; E44.0 Moderate protein-calorie malnutrition; J44.0 Chronic obstructive pulmonary disease with (acute) lower respiratory infection; J98.11 Atelectasis; J90 Pleural effusion, not elsewhere classified; S22.41XA Multiple fractures of ribs, right side, initial encounter for closed fracture; R07.89 Other chest pain; D50.9 Iron deficiency anemia, unspecified; E03.9 Hypothyroidism, unspecified; E11.22 Type 2 diabetes mellitus with diabetic chronic kidney disease; E78.5 Hyperlipidemia, unspecified; I25.10 Atherosclerotic heart disease of native coronary artery without angina pectoris; N18.9 Chronic kidney disease, unspecified; I48.91 Unspecified atrial fibrillation; W06.XXXA Fall from bed, initial encounter; Y92.122 Bedroom in nursing home as the place of occurrence of the external cause; K21.9 Gastro-esophageal reflux disease without esophagitis; E11.65 Type 2 diabetes mellitus with hyperglycemia; E87.5 Hyperkalemia; T50.2X5A Adverse effect of carbonic-anhydrase inhibitors, benzothiadiazides and other diuretics, initial encounter; Z87.891 Personal history of nicotine dependence; J44.9 Chronic obstructive pulmonary disease, unspecified; Z93.1 Gastrostomy status; I34.2 Nonrheumatic mitral (valve) stenosis; K59.00 Constipation, unspecified; R13.10 Dysphagia, unspecified; Z66 Do not resuscitate; Z87.01 Personal history of pneumonia (recurrent); F09 Unspecified mental disorder due to known physiological condition
CPT/HCPCS: 31720; 36415; 36600; 71010-TC; 71100-TC; 76942-TC; 80048-TC; 80053-TC; 80061-TC; 80076-TC; 81000-TC; 82962-TC; 83540-TC; 83605-TC; 83735-TC; 84100-TC; 84132-TC; 84155; 84165; 84484-TC; 85025-TC; 85730-TC; 87040-TC; 87070-TC; 87081-TC; 88305-TC; 88312-TC; 89051-TC; 92526; 92611-TC; 93307-TC; 93970-TC; 94760-TC; 94799-TC; A4216; A4606; J0610; J1644; J1815; J1940; J1956; J2270; J2405; J2543; J2916; J2930; J3370; J3480; J7030; J7042; J7050; J7060; Z7610